=== PATIENT | female | born 1965 | race Caucasian/White ===

== ENCOUNTER 2020-04-06 18:37 | Emergency (ER) | payer BC ==
[~2020-04-06] VITALS: Ht 180.3 cm; Wt 100.0 kg
[2020-04-06] MEDS ORDERED: COMBIVENT RESPIMAT 100-20MCG INHALER 4GM INH STA (19:13)
--- NOTE | 2020-04-06 20:02 | REPVR ---
PROCEDURE INFORMATION: Exam: XR Chest, 2 Views Exam date and time: 04/06/2020 7:27 PM Age: 54 years old Clinical indication: Shortness of breath; Additional info: Dyspnea/cough TECHNIQUE: Imaging protocol: XR of the chest Views: 2 views. COMPARISON: No relevant prior studies available. FINDINGS: Tubes, catheters and devices: Murray rods. Dual lead pacemaker. Lungs: Unremarkable. No consolidation. Pleural space: Unremarkable. No pleural effusion. No pneumothorax. Heart/Mediastinum: Unremarkable. No cardiomegaly. Bones/joints: Unremarkable. IMPRESSION: No acute abnormality. Electronically signed by: David Hyatt On 04/06/2020 20:02:00 PM
[2020-04-06] MEDS ORDERED: TUSSICAPS ER 10/8MG CAPSULE PO ONE (20:30)
[2020-04-06] MEDS ORDERED: AUGMENTIN 875 MG TAB PO ONE (20:30)
[2020-04-06] MEDS ORDERED: predniSONE 20 MG TAB PO ONE (20:30)
[2020-04-06] MEDS ORDERED: AUGM875T28 PO (20:47)
[2020-04-06] MEDS ORDERED: PRED20TA PO (20:47)
[2020-04-06] MEDS ORDERED: TUSS1CAP5 PO (20:47)
[2020-04-06 21:04] VITALS: BP 146/68
[2020-04-07] MEDS ORDERED: tussionex PO (09:54)
== END 2020-04-06 21:48 | disposition home or self-care (01) ==
LOC: M ED 18:37
DX: J20.9 Acute bronchitis, unspecified (principal); J01.90 Acute sinusitis, unspecified; J44.9 Chronic obstructive pulmonary disease, unspecified; F17.200 Nicotine dependence, unspecified, uncomplicated; Z88.5 Allergy status to narcotic agent; Z88.8 Allergy status to other drugs, medicaments and biological substances

== ENCOUNTER 2020-07-29 16:48 | Emergency (ER) | payer BC, SELFPAY ==
[~2020-07-29] VITALS: Ht 180.3 cm; Wt 114.2 kg
[~2020-07-29 16:48] MED LIST: AUGM875T28 PO; PRED20TA PO; TUSS1CAP5 PO; tussionex PO
[2020-07-29] MEDS ORDERED: SUCR1TA PO (17:08)
[2020-07-29] MEDS ORDERED: VENTAER INH (17:08)
[2020-07-29] MEDS ORDERED: DIGO0.123 PO ×2 (17:08→18:45)
[2020-07-29] MEDS ORDERED: GABA600T4 PO (17:08)
[2020-07-29] MEDS ORDERED: CYMB60CA3 PO (17:08)
[2020-07-29] MEDS ORDERED: PRIL20TA2 PO (17:08)
[2020-07-29] MEDS ORDERED: AZEL1SPR3 NARES (17:08)
[2020-07-29] MEDS ORDERED: ABIL1TAB13 PO (17:08)
[2020-07-29] MEDS ORDERED: ELIQ5TAB PO ×2 (17:08→18:45)
[2020-07-29] MEDS ORDERED: MONT5TAB2 PO (17:08)
[2020-07-29] MEDS ORDERED: SPIR50TA4 PO (17:08)
[2020-07-29] MEDS ORDERED: METO100T5 PO ×2 (17:08→18:45)
[2020-07-29] MEDS ORDERED: ROPI2TAB24 PO (17:08)
[2020-07-29] MEDS ORDERED: BUME1TAB3 PO (17:08)
[2020-07-29] MEDS ORDERED: KEPP1TAB2 PO ×2 (17:08→18:45)
[2020-07-29] MEDS ORDERED: CYCL-707 PO (17:08)
[2020-07-29] MEDS ORDERED: FLON1SPR NARES (17:08)
--- NOTE | 2020-07-29 17:13 | REP ---
INDICATION: CHEST PAIN COMPARISON: 04/06/2020 TECHNIQUE: Portable AP view of the chest FINDINGS: The mediastinum and cardiac silhouette are stable and within normal limits for portable technique. The lung hoover are clear without acute consolidation, effusion, or pneumothorax. Skeletal structures are intact. Stable pacemaker and Murray rods noted. IMPRESSION: No acute cardiopulmonary process appreciated. <Electronically signed by Mayur German > 07/29/20 [id number]
[2020-07-29 17:19] LABS: BASO % 0.4 % (0.0-1.0); EOS # 0.2 10^3/uL (0.0-0.5); HEMATOCRIT 42.3 % (36.0-47.0); HEMOGLOBIN 12.7 g/dl (12.0-15.5); MEAN CORPUSCULAR HEMOGLOBIN 27.5 pg (27.0-33.0); MEAN CORPUSCULAR VOLUME 91.6 fl (80.0-96.0); MONO # 0.4 10^3/uL (0.0-0.8); MONO % 4.7 % (0.0-5.0); NEUTROPHILS # 5.7 10^3/uL (1.5-8.5); NEUTROPHILS % 60.5 % (36.0-66.0); PLATELET COUNT, AUTOMATED 322 10^3/uL (150-450); RED BLOOD COUNT 4.62 10^6/uL (4.00-5.40); WHITE BLOOD COUNT 9.4 10^3/uL (4.0-10.0)
[2020-07-29 17:57] LABS: ALBUMIN 3.5 GM/DL (3.2-5.2); BILIRUBIN,DIRECT 0.2 MG/DL (0.0-0.2); BILIRUBIN,TOTAL 0.7 MG/DL (0.2-1.0); DIGOXIN LEVEL 0.4 NG/ML (0.5-2.0); FREE T4 1.1 NG/DL (0.76-1.46); THYROID STIMULATING HORMONE 1.2 uIU/ML (0.358-3.740); TOTAL PROTEIN 7.1 GM/DL (6.4-8.2)
[2020-07-29] MEDS ORDERED: ISOVUE-370 76% 100ML VIAL As Ordered ONE (17:57)
[2020-07-29] MEDS ORDERED: ONDANSETRON 4MG/2ML VIAL IV ONE (18:15)
[2020-07-29] MEDS: MORPHINE 2 MG/ML 1ML VIAL (J2270) IV PRN ×2 (18:22→20:50)
--- NOTE | 2020-07-29 18:26 | REPVR ---
PROCEDURE INFORMATION: Exam: CT Angiography Chest With Contrast Exam date and time: 07/29/2020 6:06 PM Age: 54 years old Clinical indication: Chest pain; Additional info: Cp h/o pe TECHNIQUE: Imaging protocol: Computed tomographic angiography of the chest with intravenous contrast. 3D rendering (Not supervised by radiologist): MIP and/or 3D reconstructed images were created by the technologist. Radiation optimization: All CT scans at this facility use at least one of these dose optimization techniques: automated exposure control; mA and/or kV adjustment per patient size (includes targeted exams where dose is matched to clinical indication); or iterative reconstruction. Contrast material: ISOVUE 370; Contrast volume: 75 ml; Contrast route: INTRAVENOUS (IV); COMPARISON: CR PORTABLE CHEST X-RAY 07/29/2020 5:00 PM FINDINGS: Pulmonary arteries: Normal. No pulmonary emboli. Aorta: Unremarkable. No aortic aneurysm. No aortic dissection. Lungs: Calcified granuloma right middle lobe. Lungs otherwise clear. Pleural space: Unremarkable. No pneumothorax. No pleural effusion. Heart: Unremarkable. No cardiomegaly. No pericardial effusion. Lymph nodes: Unremarkable. No enlarged lymph nodes. Bones/joints: The spine demonstrates mild degenerative changes. Posterior metallic transfixation of the lower thoracic and lumbar spine beginning at T10. Osteoporosis. Soft tissues: Unremarkable. IMPRESSION: 1. No pulmonary emboli. 2. No dissection. 3. Findings consistent with remote intrathoracic granulomatous infection. 4. No acute pulmonary parenchymal infiltrates. Electronically signed by: Ahmet Zurita On 07/29/2020 18:27:07 PM
--- NOTE | 2020-07-29 18:56 | ECGEPIP ---
[facility] - ED Test Date: 2020-07-29 Pat Name: HENRIQUE LIM Department: Room: - Gender: Female Photographer Finish: amaya : 1965 Requested By: Veronica English Order Number: [id number] Reading MD: Veronica English Measurements Intervals Farrell Rate: 90 P: 40 HI: 191 QRS: -16 QRSD: 151 T: 64 QT: 401 QTc: 493 Interpretive Statements SINUS RHYTHM LEFT BUNDLE BRANCH BLOCK No prior Electronically Signed on 07-29-2020 18:55:54 EST by Veronica English
[2020-07-30 00:15] VITALS: BP 113/54
--- NOTE | 2020-07-30 16:35 | ECGEPIP ---
[facility] - ED Test Date: 2020-07-29 Pat Name: HENRIQUE LIM Department: Room: - Gender: Female Floor Specialist: SANIYA : 1965 Requested By: Veronica English Order Number: [id number] Reading MD: Veronica English Measurements Intervals Bulan Rate: 92 P: 32 IL: 174 QRS: 7 QRSD: 150 T: 53 QT: 401 QTc: 498 Interpretive Statements SINUS RHYTHM INTRAVENTRICULAR CONDUCTION DELAY SIMILAR 07/29/20 Electronically Signed on 07-30-2020 16:35:08 EST by Veronica English
== END 2020-07-30 00:27 | disposition home or self-care (01) ==
LOC: M ED 16:48
DX: R07.9 Chest pain, unspecified (principal); I44.7 Left bundle-branch block, unspecified; R06.02 Shortness of breath; I51.9 Heart disease, unspecified; I48.91 Unspecified atrial fibrillation; E78.5 Hyperlipidemia, unspecified; Z86.711 Personal history of pulmonary embolism; Z95.0 Presence of cardiac pacemaker; F17.200 Nicotine dependence, unspecified, uncomplicated; Z79.01 Long term (current) use of anticoagulants; Z79.899 Other long term (current) drug therapy; Z88.8 Allergy status to other drugs, medicaments and biological substances; Z88.5 Allergy status to narcotic agent
CPT/HCPCS: 71045; 71275; 80047; 80076; 80162; 80180; 83690; 83880; 84439; 84443; 84484; 85025; 93005; 93041; 94760; 96374; 96375; 96376; 99285; J2270; J2405; Q9967